=== PATIENT | female | born 1980 | race Two or more races ===

== ENCOUNTER 2018-03-23 20:10 | Emergency (ER) | payer MEDICAID ==
[~2018-03-23] VITALS: Ht 152.4 cm; Wt 84.0 kg
[2018-03-23 20:34] VITALS: BP 109/75
== END 2018-03-23 23:30 | disposition left against medical advice (07) ==
LOC: ER 21:38
DX: R10.13 Epigastric pain (principal); Z53.21 Procedure and treatment not carried out due to patient leaving prior to being seen by health care provider